=== PATIENT | male | born 1955 | race Caucasian/White ===

== ENCOUNTER → 2020-11-10 | Outpatient (CLI) | payer MEDICARE, OTHER ==
[~2020-11-10] MED LIST: ALBUTEROL0.83 MG/ML IH; ALDACTONE 25MG25 M1 PO; AMBIEN 10MG10 MG PO; B-12 500 MCG PO; CARDIZEM CD 24240 MG PO; CATAPRES 0.1MG0.1 MG PO; CENTRUM1 TA1 PO; COMBIRESP IH; COZAAR100 MG PO; DOXYCYCLINE 10100 MG PO; FLEXERIL 1010 MG/TAB PO; HUMIRA PEN40 MG/0.4 SQ; IPRATROPIUM BROM3 M1 IH; JARDIANCE25 PO; LANTUS SOLOS100 U/ML SQ; LASIX 40MG TABL40 MG PO; LIPITOR20 MG PO; MOBIC15 MG PO; NEURONTIN300 MG/CAP PO; NOVOLOG 100U100 U/M1 SQ; PROAIR HFA0.09 MG/AC IH; PROTONIX 40MG T40 MG PO; ULTRACET TABL1 UDTAB PO; VITAMIN B COMPL1 SGL PO; VITAMINC1000TA PO; ZOFRAN 4MG T4 MG/TAB PO; ZOLOFT 25MG25 MG PO
== END ==
LOC: COL.PUL 11:08
DX: R06.09 Other forms of dyspnea (principal); Z87.891 Personal history of nicotine dependence

== ENCOUNTER 2020-12-14 16:09 | Emergency (ER) | payer OTHER ==
[~2020-12-14] VITALS: Ht 170.2 cm; Wt 136.4 kg
[2020-12-14 16:18] VITALS: TEMP 99.6
[2020-12-14 17:39] LABS: ALANINE AMINOTRANSFERASE 72 U/L (4-49); ALBUMIN 3.2 gm/dL (3.5-5.0); ALKALINE PHOSPHATASE 59 U/L (50-136); ANION GAP 4 mmol/L (7-16); AST,SGOT 53 U/L (15-37); BILIRUBIN,TOTAL 1.2 mg/dL (0.0-1.0); BLOOD UREA NITROGEN 13 mg/dL (9-20); CALCIUM 8.9 mg/dL (8.4-10.2); CARBON DIOXIDE 27 mmol/L (22-30); CHLORIDE 110 mmol/L (98-107); CREATININE, serum 0.74 (0.66-1.25); GLUCOSE 186 mg/dL (74-106); SODIUM 140 mmol/L (137-145); TOTAL PROTEIN 6.9 gm/dL (6.4-8.2)
[2020-12-14 17:40] LABS: BASO % 0.2 % (0.0-2.0); EOS # 0.2 (0.0-0.7); EOS % 4.4 % (0-4.0); GRAN # 2.5 (1.4-6.5); GRAN % 53.1 % (42.2-75.2); HEMATOCRIT 37.6 % (42.0-52.0); HEMOGLOBIN 12.9 g/dl (13.5-18.0); LYMPH # 1.5 (1.2-3.4); LYMPH % 32.2 % (20.0-51.0); MEAN CELL VOLUME 93 fl (80.0-100.0); MEAN CORPUSCULAR HEMOGLOBIN 32 pg (27.0-31.0); MEAN CORPUSCULAR HGB CONC 34 g/dl (33.0-37.0); MEAN PLATELET VOLUME 10.6 fl (7.4-10.4); MONO # 0.5 (0.1-0.6); MONO % 10.1 % (1.7-9.3); PLATELET COUNT 69 K/mm3 (130-400); RED BLOOD COUNT 4.04 M/mm3 (4.20-5.60); REDCELL DISTRIBUTION WIDTH-CV 13.7 % (11.5-14.5)
[2020-12-14 17:51] LABS: TROPONIN-I < 0.012 ng/mL (0.000-0.035)
[2020-12-14] MEDS ORDERED: COMBIRESP IH (19:19)
[2020-12-14 19:32] VITALS: BP 121/65; PULSE 69
[2020-12-15] MEDS ORDERED: IPRATROPIUM BROM3 M1 IH ×2 (11:09→11:11)
[2020-12-15] MEDS ORDERED: DOXYCYCLINE 10100 MG PO (11:11)
== END 2020-12-14 19:32 | disposition home or self-care (01) ==
LOC: COL.ER 16:09
PROVIDERS: Family Medicine
DX: J44.1 Chronic obstructive pulmonary disease with (acute) exacerbation (principal); I10 Essential (primary) hypertension; E66.9 Obesity, unspecified; Z20.822 Contact with and (suspected) exposure to COVID-19; Z68.42 Body mass index [BMI] 45.0-49.9, adult
CPT/HCPCS: J2930; J7120; Q9967

== ENCOUNTER → 2021-01-29 | Outpatient (CLI) | payer MEDICARE | LOC: COL.RAD 10:14 | DX: K74.69 Other cirrhosis of liver (principal) ==

== ENCOUNTER 2021-04-12 09:26 | Day surgery (SDC) | payer MEDICARE ==
[2021-04-12] VITALS (10 sets, daily range): BP systolic 142–190; BP diastolic 81–104; PULSE 71–88; TEMP 98.2
[~2021-04-12] VITALS: Ht 170.3 cm; Wt 141.7 kg
[~2021-04-12 09:26] MED LIST changes: -ALBUTEROL0.83 MG/ML IH; -ALDACTONE 25MG25 M1 PO; -AMBIEN 10MG10 MG PO; -B-12 500 MCG PO; -CARDIZEM CD 24240 MG PO; -CATAPRES 0.1MG0.1 MG PO; -CENTRUM1 TA1 PO; -COZAAR100 MG PO; -FLEXERIL 1010 MG/TAB PO; -HUMIRA PEN40 MG/0.4 SQ; -JARDIANCE25 PO; -LANTUS SOLOS100 U/ML SQ; -LASIX 40MG TABL40 MG PO; -LIPITOR20 MG PO; -MOBIC15 MG PO; -NEURONTIN300 MG/CAP PO; -NOVOLOG 100U100 U/M1 SQ; -PROAIR HFA0.09 MG/AC IH; -PROTONIX 40MG T40 MG PO; -ULTRACET TABL1 UDTAB PO; -VITAMIN B COMPL1 SGL PO; -VITAMINC1000TA PO; -ZOFRAN 4MG T4 MG/TAB PO; -ZOLOFT 25MG25 MG PO
[2021-04-12 10:43] LABS: HEMATOCRIT 46.2 % (42.0-52.0); HEMOGLOBIN 16.1 g/dl (13.5-18.0); MEAN CELL VOLUME 88 fl (80.0-100.0); MEAN CORPUSCULAR HEMOGLOBIN 31 pg (27.0-31.0); MEAN CORPUSCULAR HGB CONC 35 g/dl (33.0-37.0); MEAN PLATELET VOLUME 10.3 fl (7.4-10.4); PLATELET COUNT 93 K/mm3 (130-400); RED BLOOD COUNT 5.25 M/mm3 (4.20-5.60); REDCELL DISTRIBUTION WIDTH-CV 14.3 % (11.5-14.5)
[2021-04-12 10:49] LABS: INR 1.3 (0.8-3.0); PROTHROMBIN TIME 14.7 SECONDS (9.7-12.8)
[2021-04-12 10:52] LABS: PARTIAL THROMBOPLASTIN TIME 30.5 SECONDS (26.0-37.0)
[2021-04-12 11:01] LABS: CALCIUM 8.9 mg/dL (8.4-10.2); CREATININE, serum 0.83 mg/dL (0.72-1.25); POTASSIUM 4.3 mmol/L (3.5-4.5)
[2021-04-12] MEDS ORDERED: LASIX 40MG TABL40 MG PO (11:23)
[2021-04-12] MEDS ORDERED: CARDIZEM CD 24240 MG PO (11:24)
[2021-04-12] MEDS ORDERED: HUMIRA PEN40 MG/0.4 SQ (11:25)
[2021-04-12] MEDS ORDERED: PROAIR HFA0.09 MG/AC IH (11:25)
[2021-04-12] MEDS ORDERED: ALBUTEROL0.83 MG/ML IH (11:26)
[2021-04-12] MEDS ORDERED: VITAMIN B COMPL1 SGL PO (11:26)
[2021-04-12] MEDS ORDERED: LIPITOR20 MG PO (11:26)
[2021-04-12] MEDS ORDERED: CATAPRES 0.1MG0.1 MG PO (11:27)
[2021-04-12] MEDS ORDERED: B-12 500 MCG PO (11:28)
[2021-04-12] MEDS ORDERED: FLEXERIL 1010 MG/TAB PO (11:29)
[2021-04-12] MEDS ORDERED: NEURONTIN300 MG/CAP PO (11:30)
[2021-04-12] MEDS ORDERED: JARDIANCE25 PO (11:30)
[2021-04-12] MEDS ORDERED: NOVOLOG 100U100 U/M1 SQ (11:31)
[2021-04-12] MEDS ORDERED: COZAAR100 MG PO (11:34)
[2021-04-12] MEDS ORDERED: LANTUS SOLOS100 U/ML SQ (11:34)
[2021-04-12] MEDS ORDERED: MOBIC15 MG PO (11:35)
[2021-04-12] MEDS ORDERED: ZOFRAN 4MG T4 MG/TAB PO (11:35)
[2021-04-12] MEDS ORDERED: CENTRUM1 TA1 PO (11:35)
[2021-04-12] MEDS ORDERED: PROTONIX 40MG T40 MG PO (11:36)
[2021-04-12] MEDS ORDERED: ZOLOFT 25MG25 MG PO (11:36)
[2021-04-12] MEDS ORDERED: ALDACTONE 25MG25 M1 PO (11:37)
[2021-04-12] MEDS ORDERED: ULTRACET TABL1 UDTAB PO (11:37)
[2021-04-12] MEDS ORDERED: VITAMINC1000TA PO (11:38)
[2021-04-12] MEDS ORDERED: AMBIEN 10MG10 MG PO (11:38)
--- NOTE | 2021-04-12 16:54 | NUR ---
All air removed from right radial band in 2-3 ml incrimentss,gauze and coban applied,no bleeding observed at site.Discharge instructions given to pt.Pt verbalizes understanding.INT removed,catheter tip intact.
--- NOTE | 2021-04-12 17:06 | NUR ---
Pt escorted out via wheelchair by this nurse.
== END 2021-04-12 17:15 ==
LOC: COL.CAR 09:26
PROVIDERS: Internal Medicine Cardiovascular Disease
DX: I27.20 Pulmonary hypertension, unspecified (principal); I11.0 Hypertensive heart disease with heart failure; I50.30 Unspecified diastolic (congestive) heart failure; E11.22 Type 2 diabetes mellitus with diabetic chronic kidney disease; I13.0 Hypertensive heart and chronic kidney disease with heart failure and stage 1 through stage 4 chronic kidney disease, or unspecified chronic kidney disease; E11.21 Type 2 diabetes mellitus with diabetic nephropathy; E66.01 Morbid (severe) obesity due to excess calories; G47.33 Obstructive sleep apnea (adult) (pediatric); E78.5 Hyperlipidemia, unspecified; E03.9 Hypothyroidism, unspecified; I73.9 Peripheral vascular disease, unspecified; L40.50 Arthropathic psoriasis, unspecified; Z79.4 Long term (current) use of insulin; Z79.899 Other long term (current) drug therapy; Z79.1 Long term (current) use of non-steroidal anti-inflammatories (NSAID); Z68.42 Body mass index [BMI] 45.0-49.9, adult; Z79.84 Long term (current) use of oral hypoglycemic drugs
CPT/HCPCS: C1769; C1894; J1644; J2250; J2704; Q9967

== ENCOUNTER 2021-04-14 02:01 | Emergency (ER) | payer MEDICARE ==
[~2021-04-14] VITALS: Ht 170.2 cm; Wt 138.6 kg
[~2021-04-14 02:01] MED LIST changes: +ALBUTEROL0.83 MG/ML IH; +ALDACTONE 25MG25 M1 PO; +AMBIEN 10MG10 MG PO; +B-12 500 MCG PO; +CARDIZEM CD 24240 MG PO; +CATAPRES 0.1MG0.1 MG PO; +CENTRUM1 TA1 PO; +COZAAR100 MG PO; +FLEXERIL 1010 MG/TAB PO; +HUMIRA PEN40 MG/0.4 SQ; +JARDIANCE25 PO; +LANTUS SOLOS100 U/ML SQ; +LASIX 40MG TABL40 MG PO; +LIPITOR20 MG PO; +MOBIC15 MG PO; +NEURONTIN300 MG/CAP PO; +NOVOLOG 100U100 U/M1 SQ; +PROAIR HFA0.09 MG/AC IH; +PROTONIX 40MG T40 MG PO; +ULTRACET TABL1 UDTAB PO; +VITAMIN B COMPL1 SGL PO; +VITAMINC1000TA PO; +ZOFRAN 4MG T4 MG/TAB PO; +ZOLOFT 25MG25 MG PO
[2021-04-14 02:17] VITALS: TEMP 97.7
[2021-04-14 02:24] LABS: BASO # 0.1 K/mm3 (0.0-0.2); BASO % 0.4 % (0.0-2.0); EOS # 0.3 K/mm3 (0.0-0.7); EOS % 2.2 % (0-4.0); GRAN # 8.1 K/mm3 (1.4-6.5); GRAN % 60.9 % (42.2-75.2); HEMATOCRIT 45.2 % (42.0-52.0); HEMOGLOBIN 15.6 g/dl (13.5-18.0); LYMPH # 3.4 K/mm3 (1.2-3.4); LYMPH % 25.4 % (20.0-51.0); MEAN CELL VOLUME 91 fl (80.0-100.0); MEAN CORPUSCULAR HEMOGLOBIN 31 pg (27.0-31.0); MEAN CORPUSCULAR HGB CONC 35 g/dl (33.0-37.0); MEAN PLATELET VOLUME 10.4 fl (7.4-10.4); MONO # 1.4 K/mm3 (0.1-0.6); MONO % 10.6 % (1.7-9.3); PLATELET COUNT 133 K/mm3 (130-400); RED BLOOD COUNT 4.99 M/mm3 (4.20-5.60); REDCELL DISTRIBUTION WIDTH-CV 14.7 % (11.5-14.5)
[2021-04-14 02:37] LABS: ALANINE AMINOTRANSFERASE 50 U/L (0-55); ALBUMIN 3.4 gm/dL (3.4-4.8); ALKALINE PHOSPHATASE 54 U/L (40-150); ANION GAP 11 mmol/L (7-16); AST,SGOT 52 U/L (5-34); BILIRUBIN,TOTAL 1.3 mg/dL (0.2-1.2); BLOOD UREA NITROGEN 16 mg/dL (8-26); CALCIUM 9.8 mg/dL (8.4-10.2); CARBON DIOXIDE 21 mmol/L (23-31); CHLORIDE 107 mmol/L (98-107); CREATININE, serum 0.96 mg/dL (0.72-1.25); GLUCOSE 167 mg/dL (70-99); POTASSIUM 4.2 mmol/L (3.5-4.5); SODIUM 139 mmol/L (136-145); TOTAL PROTEIN 6.6 gm/dL (6.2-8.1)
[2021-04-14 03:23] LABS: ARTERIAL BLD GAS O2 SATURATION 94.8 % (92-100); ARTERIAL BLD GAS TCO2 CT 23.9; ARTERIAL BLOOD GAS BASE EXCESS -2.1 (-2-2); ARTERIAL BLOOD GAS HCO3 22.7 meq/L (22-26); ARTERIAL BLOOD GAS PCO2 39.3 mmHg (35-45); ARTERIAL BLOOD GAS PO2 76.2 mmHg (80-100); ARTERIAL BLOOD GAS pH 7.38 (7.35-7.45)
[2021-04-14 03:52] LABS: TROPONIN-I < 0.010 ng/mL (0.00-0.033)
[2021-04-14] MEDS ORDERED: PROAIR HFA0.09 MG/AC IH (04:27)
[2021-04-14 04:53] VITALS: BP 107/59; PULSE 56
== END 2021-04-14 04:44 | disposition left against medical advice (07) ==
LOC: COL.ER 02:01
PROVIDERS: Emergency Medicine
DX: J44.1 Chronic obstructive pulmonary disease with (acute) exacerbation (principal); I10 Essential (primary) hypertension; E11.9 Type 2 diabetes mellitus without complications; E78.5 Hyperlipidemia, unspecified; Z79.4 Long term (current) use of insulin; Z79.899 Other long term (current) drug therapy
CPT/HCPCS: J7040; Q9967

== ENCOUNTER → 2021-09-29 | Outpatient (CLI) | payer MEDICARE ==
[~2021-09-29] MED LIST changes: +ROXICODONE 55 MG/TAB PO; +ZANAFLEX 4MG TAB4 MG PO
== END ==
LOC: COL.RAD 06:21
DX: I85.00 Esophageal varices without bleeding (principal); K74.69 Other cirrhosis of liver; K76.6 Portal hypertension
CPT/HCPCS: Q9967

== ENCOUNTER 2021-10-07 08:11 | Emergency (ER) | payer OTHER, MEDICARE ==
[~2021-10-07] VITALS: Ht 170.2 cm; Wt 131.4 kg
[~2021-10-07 08:11] MED LIST changes: -ROXICODONE 55 MG/TAB PO; -ZANAFLEX 4MG TAB4 MG PO
[2021-10-07 08:25] VITALS: TEMP 97.8
[2021-10-07] MEDS ORDERED: ZANAFLEX 4MG TAB4 MG PO (08:47)
[2021-10-07 09:15] LABS: BASO % 0.3 % (0.0-2.0); EOS # 0.2 K/mm3 (0.0-0.7); EOS % 1.6 % (0.0-4.0); GRAN # 5.6 K/mm3 (1.4-6.5); GRAN % 61.3 % (42.2-75.2); LYMPH # 2.1 K/mm3 (1.2-3.4); LYMPH % 22.8 % (20.0-51.0); MEAN CELL VOLUME 91 fl (80.0-100.0); MEAN CORPUSCULAR HGB CONC 35 g/dl (33.0-37.0); MEAN PLATELET VOLUME 10.5 fl (7.4-10.4); MONO # 1.2 K/mm3 (0.1-0.6); MONO % 13.6 % (1.7-9.3); PLATELET COUNT 89 K/mm3 (130-400); RED BLOOD COUNT 6.27 M/mm3 (4.20-5.60); REDCELL DISTRIBUTION WIDTH-CV 17.4 % (11.5-14.5)
[2021-10-07 09:17] LABS: HEMATOCRIT 57.3 % (42.0-52.0); MEAN CORPUSCULAR HEMOGLOBIN 32 pg (27-31)
[2021-10-07 09:36] LABS: ALBUMIN 3.3 gm/dL (3.4-4.8); BILIRUBIN,TOTAL 2.7 mg/dL (0.2-1.2); CREATININE, serum 0.86 mg/dL (0.72-1.25); POTASSIUM 4.4 mmol/L (3.5-4.5); TOTAL PROTEIN 6.7 gm/dL (6.2-8.1)
[2021-10-07] MEDS ORDERED: ROXICODONE 55 MG/TAB PO (13:30)
[2021-10-07] MEDS ORDERED: PROTONIX 40MG T40 MG PO (13:30)
[2021-10-07 13:47] VITALS: BP 143/86; PULSE 86
== END 2021-10-07 13:55 | disposition home or self-care (01) ==
LOC: COL.ER 08:11
PROVIDERS: Personal Emergency Response Attendant
DX: K25.9 Gastric ulcer, unspecified as acute or chronic, without hemorrhage or perforation (principal)
CPT/HCPCS: J2270; J2405; J7030; Q9967

== ENCOUNTER 2021-10-25 21:52 | Emergency (ER) | payer OTHER, MEDICARE ==
[~2021-10-25] VITALS: Ht 170.2 cm; Wt 131.4 kg
[~2021-10-25 21:52] MED LIST changes: +ROXICODONE 55 MG/TAB PO; +ZANAFLEX 4MG TAB4 MG PO
[2021-10-25 21:53] VITALS: BP 117/74; PULSE 85; TEMP 98.3
[2021-10-26] MEDS ORDERED: PERCOCET 325 MG1 TA2 PO (07:14)
== END 2021-10-25 23:22 | disposition left against medical advice (07) ==
LOC: COL.ER 21:52
DX: M79.662 Pain in left lower leg (principal)

== ENCOUNTER 2021-10-26 03:38 | Emergency (ER) | payer OTHER, MEDICARE ==
[~2021-10-26] VITALS: Ht 170.2 cm; Wt 131.4 kg
[2021-10-26 04:15] VITALS: TEMP 97.8
[2021-10-26 05:08] LABS: BASO % 0.3 % (0.0-2.0); GRAN # 9.3 K/mm3 (1.4-6.5); GRAN % 88.7 % (42.2-75.2); LYMPH # 0.7 K/mm3 (1.2-3.4); LYMPH % 6.2 % (20.0-51.0); MEAN CELL VOLUME 94 fl (80.0-100.0); MEAN CORPUSCULAR HGB CONC 34 g/dl (33.0-37.0); MONO # 0.5 K/mm3 (0.1-0.6); MONO % 4.5 % (1.7-9.3); PLATELET COUNT 91 K/mm3 (130-400); RED BLOOD COUNT 6.15 M/mm3 (4.20-5.60); REDCELL DISTRIBUTION WIDTH-CV 17.8 % (11.5-14.5)
[2021-10-26 05:13] LABS: HEMATOCRIT 57.5 % (42.0-52.0); HEMOGLOBIN 19.6 g/dl (13.5-18.0); MEAN CORPUSCULAR HEMOGLOBIN 32 pg (27-31)
[2021-10-26 05:16] LABS: INR 1.4 (0.8-3.0); PROTHROMBIN TIME 16.6 SECONDS (9.7-12.8)
[2021-10-26 05:26] LABS: ALBUMIN 3.8 gm/dL (3.4-4.8); BILIRUBIN,TOTAL 3.8 mg/dL (0.2-1.2); CALCIUM 9.5 mg/dL (8.4-10.2); CREATININE, serum 1.19 mg/dL (0.72-1.25); POTASSIUM 5.5 mmol/L (3.5-4.5); TOTAL PROTEIN 7.1 gm/dL (6.2-8.1)
[2021-10-26] MEDS ORDERED: PERCOCET 325 MG1 TA2 PO (07:14)
[2021-10-26 07:30] VITALS: BP 139/82; PULSE 71
== END 2021-10-26 07:30 | disposition left against medical advice (07) ==
LOC: COL.ER 03:38
PROVIDERS: Personal Emergency Response Attendant
DX: I73.9 Peripheral vascular disease, unspecified (principal)
CPT/HCPCS: J2405; J3010; Q9967

== ENCOUNTER → 2022-01-13 | Outpatient (CLI) | payer MEDICARE ==
[~2022-01-13] MED LIST changes: +PERCOCET 325 MG1 TA2 PO
== END ==
LOC: COL.RAD 08:59
DX: M50.21 Other cervical disc displacement, high cervical region (principal); M48.02 Spinal stenosis, cervical region

== ENCOUNTER 2022-10-05 15:24 | Outpatient (RCR) | payer MEDICARE | END 2022-10-12 | disposition home or self-care (01) | LOC: COL.CR | DX: I73.9 Peripheral vascular disease, unspecified (principal) ==

== ENCOUNTER 2023-04-12 13:06 | Outpatient (RCR) | payer MEDICARE | END 2023-04-13 | disposition home or self-care (01) | LOC: COL.CR | DX: I73.9 Peripheral vascular disease, unspecified (principal) | CPT/HCPCS: G0238; G0239 ==

== ENCOUNTER 2023-05-10 16:25 | Outpatient (RCR) | payer MEDICARE | END 2023-05-14 | disposition still patient (30) | LOC: COL.CR | DX: I27.20 Pulmonary hypertension, unspecified (principal); Z99.81 Dependence on supplemental oxygen | CPT/HCPCS: G0237; G0239 ==

== ENCOUNTER 2023-05-31 15:22 | Outpatient (RCR) | payer MEDICARE | END 2023-06-14 | disposition home or self-care (01) | LOC: COL.CR | DX: I27.20 Pulmonary hypertension, unspecified (principal); Z99.81 Dependence on supplemental oxygen | CPT/HCPCS: G0239 ==